=== PATIENT | female | born 1990 | race Caucasian/White ===

== ENCOUNTER 2017-04-11 14:51 | Emergency (ER) | payer OTHER ==
[~2017-04-11] VITALS: Ht 165.1 cm; Wt 61.2 kg
[2017-04-11 14:51] VITALS: BP 112/81
== END 2017-04-11 16:11 | disposition home or self-care (01) ==
LOC: ER 14:53
DX: T78.3XXA Angioneurotic edema, initial encounter (principal); K13.0 Diseases of lips; X58.XXXA Exposure to other specified factors, initial encounter; Y93.9 Activity, unspecified; Y92.89 Other specified places as the place of occurrence of the external cause; Y99.8 Other external cause status
CPT/HCPCS: 99282; A4606; Z7610